=== PATIENT | female | born 1980 | race Caucasian/White ===

== ENCOUNTER 2016-09-22 10:10 | Observation (INO) | payer MEDICAID ==
[~2016-09-22] VITALS: Ht 170.2 cm; Wt 72.6 kg
[~2016-09-22 10:10] MED LIST: ALBUPOW25 XX; FERR-7 PO; PREN27TA7 OR
[2016-09-22 10:40] LABS: Urine RBC None Seen /hpf (0 - 4)
[2016-09-22 11:09] LABS: Urine Bilirubin Negative (Negative); Urine Color Yellow (Yellow); Urine Glucose Normal (Normal); Urine Squamous Epithelial Cell FEW /hpf (<5); Urine Urobilinogen Normal (Negative); Urine pH 6.5 (5.0-8.0)
[2016-09-22 11:11] LABS: Urine Blood 1+ /uL (Negative); Urine Ketone 2+ (Negative); Urine Nitrite POSITIVE (Negative)
[2016-09-22] MEDS ORDERED: cefTRIAXone SOD 1,000 MG VL IM ONE (11:45)
[2016-09-22] MEDS ORDERED: PHENAZOPYRIDINE HCL 100 MG TAB PO ONE (11:45)
[2016-09-22] MEDS ORDERED: ACETAMINOPHEN 325 MG TAB PO ONE (11:45)
[2016-09-22 11:47] VITALS: BP 113/59
== END 2016-09-22 14:10 | disposition home or self-care (01) | DRG 566 ==
LOC: ER 10:20 → LDRP 12:16 → ER 12:16 → LDRP 13:00 → UNDODEPER 13:14
PROVIDERS: ADMIT Obstetrics & Gynecology; ATTEND Obstetrics & Gynecology
DX: O23.42 Unspecified infection of urinary tract in pregnancy, second trimester (principal); O99.322 Drug use complicating pregnancy, second trimester; J45.909 Unspecified asthma, uncomplicated; O99.512 Diseases of the respiratory system complicating pregnancy, second trimester; F17.210 Nicotine dependence, cigarettes, uncomplicated; O26.892 Other specified pregnancy related conditions, second trimester; M54.5 Low back pain; M62.838 Other muscle spasm; Z3A.25 25 weeks gestation of pregnancy
CPT/HCPCS: 59025; 81001; 81002; 96372; 99285; G0378; J0696

== ENCOUNTER 2016-09-24 09:48 | Emergency (ER) | payer MEDICAID, OTHER ==
[~2016-09-24] VITALS: Ht 170.2 cm; Wt 75.3 kg
[2016-09-24 09:52] VITALS: BP 100/66
[2016-09-24 10:29] LABS: Urine Bilirubin Negative (Negative); Urine Color Yellow (Yellow); Urine Glucose Normal (Normal); Urine Mucus FEW (None Seen); Urine Nitrite Negative (Negative); Urine RBC 6 /hpf (0 - 4); Urine Squamous Epithelial Cell MANY /hpf (<5)
[2016-09-24 10:45] LABS: Urine Blood 1+ /uL (Negative); Urine Ketone 1+ (Negative)
[2016-09-24] MEDS ORDERED: HYDROcodone-ACET 10/325MG TAB PO ONE (10:45)
== END 2016-09-24 11:12 | disposition home or self-care (01) ==
LOC: EDUNIT# 09:48 → ER 09:48
DX: O23.41 Unspecified infection of urinary tract in pregnancy, first trimester (principal); O29.41 Spinal and epidural anesthesia induced headache during pregnancy, first trimester; O99.511 Diseases of the respiratory system complicating pregnancy, first trimester; J45.909 Unspecified asthma, uncomplicated; O99.331 Smoking (tobacco) complicating pregnancy, first trimester; F17.210 Nicotine dependence, cigarettes, uncomplicated; Z88.1 Allergy status to other antibiotic agents; Z3A.00 Weeks of gestation of pregnancy not specified
CPT/HCPCS: 81001

== ENCOUNTER 2017-03-28 09:28 | Emergency (ER) | payer MEDICAID ==
[~2017-03-28] VITALS: Ht 170.2 cm; Wt 79.1 kg
[2017-03-28 10:02] VITALS: BP 131/76
== END 2017-03-28 10:36 | disposition home or self-care (01) ==
LOC: ER 09:28
DX: G89.29 Other chronic pain (principal); M54.5 Low back pain; J45.909 Unspecified asthma, uncomplicated; F17.210 Nicotine dependence, cigarettes, uncomplicated; Z88.1 Allergy status to other antibiotic agents

== ENCOUNTER 2017-12-05 22:52 | Emergency (ER) | payer MEDICAID ==
[~2017-12-05] VITALS: Ht 170.2 cm; Wt 100.4 kg
[2017-12-06 00:04] LABS: Urine Bacteria FEW /hpf (None Seen); Urine Blood Negative /uL (Negative); Urine Mucus FEW (None Seen); Urine Specific Gravity 1.011 (1.001-1.035); Urine WBC 5 /hpf (0 - 5)
[2017-12-06 00:26] LABS: Basophils # (auto) 0 uL; Eosinophils # (auto) 0.1 uL; Monocytes # (auto) 0.8 uL; Neutrophils % (auto) 73.7 % (37.0-80.0); Platelet Count (auto) 239 10^3/uL (140-450)
[2017-12-06 00:28] LABS: Basophils % (auto) 0.2 % (0.0-2.0); Eosinophils % (auto) 0.5 % (0.0-7.0); Hematocrit 28.5 % (36.0-46.0); Hemoglobin 9.1 g/dL (12.2-16.2); Lymphocytes # (auto) 2.7 uL; Lymphocytes % (auto) 19.7 % (10.0-50.0); Mean Corpuscular Hemoglobin 23.5 pg (28.0-32.0); Mean Corpuscular Volume 73.4 fL (80.0-100.0); Monocytes % (auto) 5.9 % (0.0-12.0); Neutrophils # (auto) 10.1 uL; Nucleated Red Blood Cells % 0.2 %; Red Blood Cells 3.88 10^6/uL (4.0-5.20); Red Cell Distribution Width 16.7 % (11.8-14.3); White Blood Cell 13.8 10^3/uL (4.4-10.8)
[2017-12-06 00:39] LABS: Albumin 2.7 g/dL (3.4-5.0); BUN/Creatinine Ratio 8.7; Potassium 3.5 mmol/L (3.5-5.1)
[2017-12-06 00:41] LABS: Bilirubin, Total 0.2 mg/dL (0.2-1.0); Total Protein 6.8 g/dL (6.4-8.2)
[2017-12-06 01:32] VITALS: BP 113/77
== END 2017-12-06 04:29 | disposition home or self-care (01) ==
LOC: ER 22:56
DX: O12.03 Gestational edema, third trimester (principal); O26.893 Other specified pregnancy related conditions, third trimester; Z88.1 Allergy status to other antibiotic agents; Z3A.36 36 weeks gestation of pregnancy
CPT/HCPCS: 36415; 76805; 80053; 81001; 85025

== ENCOUNTER 2017-12-06 01:50 | Observation (INO) | payer MEDICAID ==
[2017-12-06 04:59] LABS: Alcohol, Urine < 3.0 mg/dL (0-5); Amphetamine Screen, Urine NEGATIVE (NEGATIVE); Barbiturate Scree,Urine NEGATIVE (NEGATIVE); Benzodiazephine Screen, Urine NEGATIVE (NEGATIVE); Cannabinoid Screen, Urine NEGATIVE (NEGATIVE); Cocaine Screen, Urine NEGATIVE (NEGATIVE); Opiate Scree,Urine NEGATIVE (NEGATIVE); Phencyclidine Screen, Urine NEGATIVE (NEGATIVE)
== END 2017-12-06 02:55 | disposition home or self-care (01) | DRG 566 ==
LOC: LDRP 01:50
PROVIDERS: ADMIT Specialist; ATTEND Specialist
DX: O40.3XX0 Polyhydramnios, third trimester, not applicable or unspecified (principal); O60.03 Preterm labor without delivery, third trimester; O09.523 Supervision of elderly multigravida, third trimester; O26.893 Other specified pregnancy related conditions, third trimester; R51 Headache; O21.2 Late vomiting of pregnancy; Z87.891 Personal history of nicotine dependence; Z3A.38 38 weeks gestation of pregnancy
CPT/HCPCS: 59025; 80307; 81002; G0378